=== PATIENT | female | born 1945 | race Caucasian/White ===

== ENCOUNTER 2021-04-29 12:27 | Emergency (ER) | payer MEDICAID ==
[~2021-04-29] VITALS: Ht 172.7 cm; Wt 64.7 kg
[~2021-04-29 12:27] MED LIST: venlafaxine XR 75mg capsule (Q24H) PO SCH
[2021-04-29 12:42] VITALS: BP 175/101
--- NOTE | 2021-04-29 13:05 | NUR ---
Patient denies ever saying she was suicidal. Patient states she needs to see a neurologist for being dizzy. RN advised patient that the doctor will decide if she needs a neurology consult. Continue to monitor.
[2021-04-29 13:17] LABS: CLARITY,URINE CLEAR (Clear); COLOR,URINE STRAW (Yellow); GLUCOSE, URINE NEGATIVE (Neg); KETONES,URINE NEGATIVE (Neg); LEUKOCYTE ESTERASE ,URINE TRACE (Neg); NITRITES, URINE NEGATIVE (Neg); OCCULT BLOOD,URINE NEGATIVE (Neg); PH,URINE 6.5 (4.8-8.0); PROTEIN,URINE NEGATIVE (Neg); UROBILINOGEN,URINE 0.2 E.U/dL (0.2-1.0)
[2021-04-29 13:18] LABS: BASOPHILS % (AUTO) 0.8 % (0-1); EOSINOPHILS # (AUTO) 0.2 X10'3 (0-0.9); EOSINOPHILS % (AUTO) 3.4 % (0-6); HEMATOCRIT 36.6 % (35.0-45.0); HEMOGLOBIN 11.7 g/dl (12.0-16.0); LYMPHOCYTES # (AUTO) 1.1 X10'3 (1.1-4.8); LYMPHOCYTES % (AUTO) 21.1 % (21-51); MEAN CORPUSCULAR HGB CONC 31.9 g/dL (33.0-36.5); MEAN CORPUSCULAR VOLUME 90.9 FL (78-98); MEAN PLATELET VOLUME 7.8 FL (7.4-10.4); MONOCYTES # (AUTO) 0.4 X10'3 (0-0.9); MONOCYTES % (AUTO) 6.7 % (2-12); NEUTROPHILS # (AUTO) 3.6 X10'3 (1.8-7.7); PLATELET COUNT 243 X10'3 (140-440); RED BLOOD COUNT 4.03 X10'6 (4.20-5.60); RED CELL DISTRIBUTION WIDTH 14.5 % (11.5-14.5); WHITE BLOOD COUNT 5.3 X10'3 (4.5-11.0)
[2021-04-29 13:23] LABS: UA COLLECTION TYPE CLN CATCH MIDSTREAM
[2021-04-29 13:24] LABS: BACTERIA,URINE FEW /HPF (Neg); MUCUS STRANDS FEW /LPF (Neg); RBC,URINE 0-2 /HPF (0-2); SQUAMOUS EPITHELIAL CELL,UR FEW /LPF (FEW); URINE AMPHETAMINE SCREEN NEGATIVE (Neg); URINE BARBITUATE SCREEN NEGATIVE (Neg); URINE BENZODIAZEPINES SCREEN NEGATIVE (Neg); URINE CANNABINOID SCREEN NEGATIVE (Neg); URINE COCAINE SCREEN NEGATIVE (Neg); URINE METHADONE SCREEN NEGATIVE (Neg); URINE OPIATE SCREEN NEGATIVE (Neg); URINE PHENCYCLIDINE SCREEN NEGATIVE (Neg); WBC,URINE 0-4 /HPF (0-4)
[2021-04-29 13:38] LABS: ALANINE AMINOTRANSFERASE 12 U/L (12-78); ALBUMIN 3.9 G/DL (3.4-5.0); ALKALINE PHOSPHATASE 121 IU/L (46-116); ANION GAP 9 (8-16); ASPARTATE AMINO TRANSFERASE 15 U/L (10-37); BILIRUBIN,TOTAL 0.3 MG/DL (0.1-1.0); BLOOD UREA NITROGEN 20 MG/DL (7-18); BUN/CREATININE RATIO 21.3 (6.6-38.0); CALCIUM 9.8 MG/DL (8.5-10.1); CHLORIDE 104 MMOL/L (99-107); CREATININE 0.94 MG/DL (0.40-0.90); GLUCOSE 97 MG/DL (70-104); POTASSIUM 4.7 MMOL/L (3.5-5.1); SODIUM 140 MMOL/L (135-145); TOTAL CARBON DIOXIDE 27.5 MMOL/L (24-32); TOTAL PROTEIN 7.9 G/DL (6.4-8.2); eGFR 58 ML/MIN
[2021-04-29 13:42] LABS: ETHANOL < 0.010 GM/DL (0.0-0.010)
[2021-04-29] MEDS ORDERED: VENL150C2 PO (13:42)
[2021-04-29] MEDS ORDERED: LAMO150T2 PO (13:42)
[2021-04-29] MEDS ORDERED: LAMO100T2 PO (13:42)
[2021-04-29] MEDS ORDERED: TRAZ-251 PO (13:42)
[2021-04-29] MEDS ORDERED: LEVO100T PO (13:42)
[2021-04-29] MEDS ORDERED: AMPH30TA3 PO (13:42)
[2021-04-29] MEDS ORDERED: LITH450T2 PO (13:42)
--- NOTE | 2021-04-29 13:44 | NUR ---
Patient states she receives her medications from [facility] and gets adderall from [facility].
--- NOTE | 2021-04-29 14:15 | NUR ---
Registration at bedside. No distress observed. Continue to monitor.
--- NOTE | 2021-04-29 14:24 | NUR ---
Leo JOAQUIN re-evaluated patient and ordered a CT of the head due to patient's dizziness. Patient calm and laying in bed. Continue to monitor.
--- NOTE | 2021-04-29 15:03 | NUR ---
Patient to CT via [facility] [employer]. Patient in w/c. No distress observed. Continue to monitor.
--- NOTE | 2021-04-29 16:30 | NUR ---
[facility] therapist, Sheila, evaluating patient. Continue to monitor.
[2021-04-29] MEDS ORDERED: lithium carbonate 450mg CR tablet PO SCH (20:00)
[2021-04-29] MEDS ORDERED: traZODone 150mg tablet PO SCH (21:00)
[2021-04-30] MEDS ORDERED: AMPHETAMINE PO SCH (08:00)
[2021-04-30] MEDS ORDERED: levoTHYROXINE 100mcg tablet PO SCH (08:00)
[2021-04-30] MEDS ORDERED: DEXTROAMPHETAMINE PO SCH (08:00)
[2021-04-30] MEDS ORDERED: lamoTRIgine 100mg tablet PO SCH (08:00)
[2021-04-30] MEDS ORDERED: lamoTRIgine 25mg tablet PO SCH (08:00)
== END 2021-04-29 17:41 | disposition home or self-care (01) ==
LOC: ER 12:29
DX: R45.851 Suicidal ideations (principal); R42 Dizziness and giddiness; M54.2 Cervicalgia; R51.9 Headache, unspecified; F32.9 Major depressive disorder, single episode, unspecified; Z79.899 Other long term (current) drug therapy
CPT/HCPCS: 36415; 70450; 80053; 80305; 80320; 81001; 84443; 85025; 99285